=== PATIENT | female | born 1950 | race Caucasian/White ===

== ENCOUNTER 2020-01-23 06:57 | Observation (INO) ==
--- NOTE | 2020-01-18 13:30 | PAT Medication Instructions ---
Medication Instructions Date of Service January 18, 2020 Home Medications acetaminophen [Tylenol] 650 mg PO QID PRN albuterol sulfate [Ventolin HFA] 2 puff INHALATION Q4H PRN aspirin [Aspir-81] 81 mg PO DAILY atorvastatin [Lipitor] 20 mg PO HS azithromycin [Zithromax] 250 mg PO UD PRN bisacodyl [Dulcolax (bisacodyl)] 10 mg MA UD PRN calcium carbonate-vitamin D3 [Calcium 600 + D(3)] 1 cap PO QAM cholecalciferol (vitamin D3) [Vitamin D3] 25 mcg PO QAM ferrous sulfate 324 mg PO QAM fluticasone furoate-vilanterol [Breo Ellipta] 1 inh INHALATION QAM food supplemt, lactose-reduced [Ensure] 1 ea PO DAILY ipratropium-albuterol 3 ml INHALATION Q4H PRN levothyroxine [Synthroid] 50 mcg PO QAM magnesium hydroxide [Milk of Magnesia] 30 ml PO UD PRN melatonin 3 mg PO HS PRN multivitamin 1 tab PO QAM nystatin 5 ml PO QID omeprazole 20 mg PO QAM polyethylene glycol 3350 [Miralax] 17 g PO DAILY senna 8.6 mg PO QAM sodium phosphates [Enema] 118 ml MA UD PRN sotalol [Betapace] 160 mg PO DAILY umeclidinium [Incruse Ellipta] 1 inh INHALATION QAM venlafaxine [Effexor XR] 75 mg PO QAM Continue as directed azithromycin [Zithromax] 250 mg PO UD PRN ASK your surgeon for instructions aspirin [Aspir-81] 81 mg PO DAILY sotalol [Betapace] 160 mg PO DAILY DO NOT take the morning of surgery polyethylene glycol 3350 [Miralax] 17 g PO DAILY senna 8.6 mg PO QAM sodium phosphates [Enema] 118 ml MA UD PRN multivitamin 1 tab PO QAM magnesium hydroxide [Milk of Magnesia] 30 ml PO UD PRN food supplemt, lactose-reduced [Ensure] 1 ea PO DAILY bisacodyl [Dulcolax (bisacodyl)] 10 mg MA UD PRN calcium carbonate-vitamin D3 [Calcium 600 + D(3)] 1 cap PO QAM cholecalciferol (vitamin D3) [Vitamin D3] 25 mcg PO QAM ferrous sulfate 324 mg PO QAM Take morning of surgery With a small sip of water, OTHERWISE NOTHING TO EAT OR DRINK AFTER MIDNIGHT: umeclidinium [Incruse Ellipta] 1 inh INHALATION QAM venlafaxine [Effexor XR] 75 mg PO QAM omeprazole 20 mg PO QAM nystatin 5 ml PO QID (do not swallow- must spit out day of surgery) levothyroxine [Synthroid] 50 mcg PO QAM ipratropium-albuterol 3 ml INHALATION Q4H PRN (if needed) acetaminophen [Tylenol] 650 mg PO QID PRN (okay to take up to 4 hours prior to surgery if needed) albuterol sulfate [Ventolin HFA] 2 puff INHALATION Q4H PRN (use if needed; please bring with you to hospital day of surgery if possible) fluticasone furoate-vilanterol [Breo Ellipta] 1 inh INHALATION QAM Take evening before surgery ipratropium-albuterol 3 ml INHALATION Q4H PRN (if needed) magnesium hydroxide [Milk of Magnesia] 30 ml PO UD PRN (if needed) melatonin 3 mg PO HS PRN (if needed) nystatin 5 ml PO QID sodium phosphates [Enema] 118 ml MA UD PRN (if needed) acetaminophen [Tylenol] 650 mg PO QID PRN (if needed) albuterol sulfate [Ventolin HFA] 2 puff INHALATION Q4H PRN (if needed) atorvastatin [Lipitor] 20 mg PO HS bisacodyl [Dulcolax (bisacodyl)] 10 mg MA UD PRN (if needed) Other Notes If you have any questions please call us at [phone] or [phone] or [phone] or [phone]
--- NOTE | 2020-01-18 19:50 | Anesthesiology Consultation ---
Date of Service January 18, 2020 Assessment & Plan (1) Encounter for pre-operative examination: Per nursing phone assessment on 01/17: Travel screen- Lives in [facility]. Travel to [place] for doctor appt. No known COVID-19 positive contacts. Patient had chronic dyspnea. Patient resides in [facility] in [place] (per caregiver, they do not have any cases). Preop COVID testing done 01/17 is pending from [facility]. Will have PAT paralegal legal secretary inform anesthesiologist to review jail status to determine if rapid testing/anything further needed day of procedure. Chart Review Chart Review: Acceptable Risk for Surgery History Surgery Operation Date: 01/23/20 08:00 Proposed Procedures p SVT Ablation w/Mapping w/Betty Gaming DO Height/Weight Height: 5 ft Weight: 39.463 kg Allergies Allergy/AdvReac Type Severity Reaction Status Date / Time No Known Allergies Allergy Verified 01/18/20 10:48 Medications Home Medications Medication Instructions Recorded Confirmed Last Taken acetaminophen [Tylenol] 650 mg PO QID PRN 01/18/20 01/18/20 Unknown albuterol sulfate [Ventolin HFA] 2 puff INHALATION Q4H PRN 01/18/20 01/18/20 Unknown aspirin [Aspir-81] 81 mg PO DAILY 01/18/20 01/18/20 Unknown atorvastatin [Lipitor] 20 mg PO HS 01/18/20 01/18/20 Unknown azithromycin [Zithromax] 250 mg PO UD PRN 01/18/20 01/18/20 Unknown bisacodyl [Dulcolax (bisacodyl)] 10 mg ID UD PRN 01/18/20 01/18/20 Unknown calcium carbonate-vitamin D3 1 cap PO QAM 01/18/20 01/18/20 Unknown [Calcium 600 + D(3)] cholecalciferol (vitamin D3) 25 mcg PO QAM 01/18/20 01/18/20 Unknown [Vitamin D3] ferrous sulfate 324 mg PO QAM 01/18/20 01/18/20 Unknown fluticasone furoate-vilanterol 1 inh INHALATION QAM 01/18/20 01/18/20 Unknown [Breo Ellipta] food supplemt, lactose-reduced 1 ea PO DAILY 01/18/20 01/18/20 Unknown [Ensure] ipratropium-albuterol 3 ml INHALATION Q4H PRN 01/18/20 01/18/20 Unknown levothyroxine [Synthroid] 50 mcg PO QAM 01/18/20 01/18/20 Unknown magnesium hydroxide [Milk of 30 ml PO UD PRN 01/18/20 01/18/20 Unknown Magnesia] melatonin 3 mg PO HS PRN 01/18/20 01/18/20 Unknown multivitamin 1 tab PO QAM 01/18/20 01/18/20 Unknown nystatin 5 ml PO QID 01/18/20 01/18/20 Unknown omeprazole 20 mg PO QAM 01/18/20 01/18/20 Unknown polyethylene glycol 3350 [Miralax] 17 g PO DAILY 01/18/20 01/18/20 Unknown senna 8.6 mg PO QAM 01/18/20 01/18/20 Unknown sodium phosphates [Enema] 118 ml ID UD PRN 01/18/20 01/18/20 Unknown sotalol [Betapace] 160 mg PO DAILY 01/18/20 01/18/20 Unknown umeclidinium [Incruse Ellipta] 1 inh INHALATION QAM 01/18/20 01/18/20 Unknown venlafaxine [Effexor XR] 75 mg PO QAM 01/18/20 01/18/20 Unknown Past Medical History Medical History (Updated 01/18/20 @ 19:54 by Lupe Armstrong) Acid reflux Anemia Anxiety Candidosis no further details per RN interview Constipation COPD (chronic obstructive pulmonary disease) oxygen at home(no further details per RN interview) Depression History of GI bleed HTN (hypertension) Hx of compression fracture of spine Hyperlipidemia Iron deficiency anemia Osteoporosis SVT (supraventricular tachycardia) had 2 episodes - went to ER 10/2019 broke with Cardizem and adenosine Past Surgical History Surgical History History of bronchoscopy EBUS Hx of colonoscopy Social History Smoking Status: Former smoker Do You Dip or Chew Tobacco: No Hx Alcohol Use: No Hx Substance Use: No substance use type: does not use Testing Laboratory Results 12/17/19 WBC 7.30 H/H 12.6/40.9 PLATELETS 249 SODIUM 135 POTASSIUM 4.2 CHLORIDE 94 CO2 36 BUN 14 CREATININE 0.5 GLUCOSE 103 Electrocardiogram Date: 12/17/19 NSR at 97bpm. Biatrial enlargement. Septal infarct (cited on/before 07/23/19). ST/TWA consider inferolateral ischemia (similar changes dating back to 06/25/18 EKG, patient had subsequent stress test 06/27/18) Chest X-Ray Date: 11/22/19 Hyperaeration. No focal parenchymal consolidation. Nodular densities in lower lung [place] suspect for nipple shadows. Stress Test Date: 06/26/18 Type: nuclear Normal pharmacologic stress test without evidence of infarct or ischemia. Stress EKG with 1mm horizontal II, III, VF. EF 69%. 67% MPHR.
[~2020-01-23 06:57] MED LIST: LR 15ML/HR IV SCH
[2020-01-23] MEDS ORDERED: HEPARIN (PORCINE) 1000 UNIT/ML 10 ML (CATH LAB USE ONLY) ONE (07:22)
[2020-01-23] MEDS ORDERED: LIDOCAINE HCL 1% 20 ML VIAL ONE (07:26)
[2020-01-23] MEDS ORDERED: KETAMINE HCL INJ 50 MG/ML 10 ML VIAL ONE (07:27)
[2020-01-23] MEDS ORDERED: MIDAZOLAM HCL 1 MG/ML 2ML VIAL ONE ×2 (07:38→08:32)
--- NOTE | 2020-01-23 07:57 | History & Physical Bridge Note ---
Date of Service January 23, 2020 History & Physical Bridge Note I have examined the patient, reviewed the History & Physical and in the interval since the performance of the History & Physical I have noted the following changes of clinical significance: no changes noted
[2020-01-23] MEDS ORDERED: PROPOFOL IV EMULSION 10 MG/ML 20 ML VIAL IV ONE (08:34)
[2020-01-23] MEDS ORDERED: ISOPROTERENOL HCL 0.2 MG/ML 5 ML AMP IV ONE (09:39)
--- NOTE | 2020-01-23 11:26 | Post Anesthesia Assessment ---
Date of Service January 23, 2020 Post Sedation Assessment Vital Signs Pulse Resp BP Pulse Ox 01/23/20 07:24 101 H 22 163/92 H 100 Recovery Score Activity: Moves 4 extremities Respiration: Deep Breath/Cough Circulation: +/-20% PreAnes Value Consciousness: Fully Awake Oxygen Saturation: > 92% On Room Air Discharge Sedation Level of Care: Fast Track Phase II Post Sedation Plan On clinical assessment, the patient appears to have tolerated the sedation without complications. Patient is recovering as anticipated. Patient will continue to be monitored by nursing and may be discharged when sedation discharge criteria are met per below protocol. Upon Completions of procedure up to 15 minutes continue every 5 minute vital signs and the P.A.R. score; then discharge to a Phase I or Fast Track to Phase II per the following guidelines: * Discharge Patient to appropriate Phase II area if PAR is 8 or greater or return to pre- procedure baseline. The post - procedure orders will be as directed. * If PAR score is less than 8 or not return to pre-procedure baseline then patient will follow Phase I monitoring till PAR is reached for Phase II. The Phase I may be done in procedure room or may call to secure a Phase I area. * If naloxone or flumazenil are used for reversal, hold in Phase I for continued monitoring from when last reversal dose was given for a minimum of 60 minutes or longer pending the nurse and/or physician discretion of patient condition before discharge to Phase II. Please call the Sedation Physician to re-evaluate and complete post-note for discharge to Phase II area. Do NOT discharge from procedure sedation or Phase 1 until post- sedation evaluation note is complete by procedure /sedation MD Sedation Discharge Instructions to be given to the patient at discharge to home.
--- NOTE | 2020-01-23 11:27 | Operative Report ---
Post Operative Report Pre & Post Diagnosis Pre: SVT post: AVNRT Operation Date: 01/23/20 08:00 <No data on this case meets the specified criteria> I identified the patient and participated in the time-out.: Yes Procedure Operation Date: 01/23/20 08:00 Actual Procedures s Ultrasound Vascular Access - Carolee Gaming DO p EPS + Ablation for SVT Flutter - DO matthew Mancini 3D Mapping (Carto) - Carolee Gaming DO Surgeon Carolee Gaming, Waiter And Cashier none Estimated Blood Loss 5 Findings Consistent with Post-Op Diagnosis Specimens none Description of Procedure see official report I attest to the content of the Intraoperative Record and any orders documented therein. Any exceptions are noted below.
--- NOTE | 2020-01-23 11:34 | Discharge Summary ---
Date of Service January 24, 2020 Admission HPI Per Admitting Provider pt with recurrent SVT Admission Exam Per Admitting Provider aaox3, NAD NC/AT, EOMI Supple No JVD ST S1/S2, No murmur CTA b/l no w/r/r soft nt/nd no LE edema b/l skin intact no focal deficits Principal Diagnosis AVNRT s/p slow pathway modification Discharge Exam aaox3, NAD NC/AT, EOMI Supple No JVD ST S1/S2, No murmur CTA b/l no w/r/r soft nt/nd no LE edema b/l skin intact no focal deficits b/l groins soft no hematoma Discharge Data Allergies Allergy/AdvReac Type Severity Reaction Status Date / Time No Known Allergies Allergy Verified 01/18/20 10:48 Procedures Performed Operation Date: 01/23/20 08:00 Actual Procedures s Ultrasound Vascular Access - Carolee Gaming DO p EPS + Ablation for SVT Flutter - Carolee Gaming DO s 3D Mapping (Carto) - Carolee Gaming DO Ordered Studies 01/23/20 06:45 EP Lab Images for PACS ONCE Hospital Course (1) AVNRT (AV ismael re-entry tachycardia): (2) HTN (hypertension): Total Time Total Time Spent Total Time Spent (In Minutes): 40 Total Time Includes: Examination of the Patient, Discharge Planning, Medication Reconciliation and Other Discharge Plan Discharge Items Patient Disposition: Home - Self-Care Reason For Visit: Supraventricular Tachycardia Discharge Diagnosis: AVNRT s/p ablation Condition on Discharge: Good Activity: As commented below Lifting: No more than 10 pounds Lifting Comment: No heavy lifting or squatting for next week Bathing: No limitations Non-emergency contact: Oncology Consultant Call non-emergency contact if: you have any medication questions Follow-up/Referrals: PCP,NO [Primary Care Provider] - Diet: Regular Addtl Attending Provider Instructions: f/u with Dr. Gaming in 1 month Pending Studies at Discharge: No Stand-Alone Forms: My [employer] [facility] Medications and DC Order Prescriptions: New metoprolol tartrate 25 mg Tablet 25 mg PO BID 30 Days Qty: 60 RF: 0 Continued multivitamin Tablet 1 tab PO QAM RF: 0 nystatin 100,000 unit/mL Suspension 5 ml PO QID RF: 0 venlafaxine [Effexor XR] 75 mg Capsule,Extended Release 24hr 75 mg PO QAM RF: 0 atorvastatin [Lipitor] 20 mg Tablet 20 mg PO HS RF: 0 ipratropium-albuterol 0.5 mg-3 mg(2.5 mg base)/3 mL Solution For Nebulization 3 ml INHALATION Q4H PRN (Reason: SHORT OF BREATH) RF: 0 polyethylene glycol 3350 [Miralax] 17 gram Powder In Packet 17 g PO DAILY RF: 0 azithromycin [Zithromax] 250 mg Tablet 250 mg PO UD PRN (Reason: DENTAL PROCEDURE) RF: 0 melatonin 3 mg Tablet 3 mg PO HS PRN (Reason: Sleep) RF: 0 aspirin [Aspir-81] 81 mg Tablet,Delayed Release (Dr/Ec) 81 mg PO DAILY RF: 0 magnesium hydroxide [Milk of Magnesia] 400 mg/5 mL Suspension 30 ml PO UD PRN (Reason: Constipation) RF: 0 levothyroxine [Synthroid] 50 mcg Tablet 50 mcg PO QAM RF: 0 bisacodyl [Dulcolax (bisacodyl)] 10 mg Suppository 10 mg HI UD PRN (Reason: Constipation) RF: 0 Enema 19-7 gram/118 mL Enema 118 ml HI UD PRN (Reason: Constipation) RF: 0 omeprazole 20 mg Capsule,Delayed Release(Dr/Ec) 20 mg PO QAM RF: 0 albuterol sulfate [Ventolin HFA] 90 mcg/actuation Hfa Aerosol Inhaler 2 puff INHALATION Q4H PRN (Reason: SHORT OF BREATH) RF: 0 senna 8.6 mg Capsule 8.6 mg PO QAM RF: 0 Calcium 600 + D(3) 600 mg calcium- 200 unit Capsule 1 cap PO QAM RF: 0 acetaminophen [Tylenol] 325 mg Capsule 650 mg PO QID PRN (Reason: PAIN/FEVER) RF: 0 cholecalciferol (vitamin D3) [Vitamin D3] 25 mcg (1,000 unit) Tablet 25 mcg PO QAM RF: 0 ferrous sulfate 324 mg (65 mg iron) Tablet,Delayed Release (Dr/Ec) 324 mg PO QAM RF: 0 Breo Ellipta 100-25 mcg/dose Blister With Device 1 inh INHALATION QAM RF: 0 Incruse Ellipta 62.5 mcg/actuation Blister With Device 1 inh INHALATION QAM RF: 0 Discontinued sotalol [Betapace] 160 mg Tablet 160 mg PO DAILY RF: 0 No Action Ensure Liquid 1 ea PO DAILY RF: 0 Discharge Orders: Discharge Order (Routine); Ordered 01/24/20 Ordered By: Carolee Gaming Admission Data Admit Date/Time: 01/23/20 11:29 Attending Provider: Carolee Gaming Admit Provider: Carolee Gaming Primary Care Provider: PCP,NO
--- NOTE | 2020-01-23 12:41 | Anesthesiology Progress Note ---
Date of Service January 23, 2020 Anesthesia Post Procedure Vital Signs Vital Signs: Pulse Resp BP Pulse Ox 01/23/20 12:00 113 H 20 124/70 100 01/23/20 11:50 107 H 20 127/76 100 01/23/20 07:24 101 H 22 163/92 H 100 Transfer of Care Handoff Completed per policy Notes Mental Status: alert / awake / arousable Patient Amnestic to Procedure: Yes Nausea / Vomiting: adequately controlled Pain: adequately controlled Airway Patency, RR, SpO2: stable & adequate BP & HR: stable & adequate Hydration State: stable & adequate Anesthetic Complications: no major complications apparent
[2020-01-23] MEDS: METOPROLOL TARTRATE 25 MG TAB PO SCH ×2 (16:44→20:03)
[2020-01-23] MEDS: ACETAMINOPHEN 325 MG TAB PO PRN (20:03)
[2020-01-24] MEDS: ACETAMINOPHEN 325 MG TAB PO PRN (07:12)
--- NOTE | 2020-01-24 08:08 | Electrocardiogram Report ---
Test Reason : Blood Pressure : / mmHG Vent. Rate : 119 BPM Atrial Rate : 119 BPM P-R Int : 118 ms QRS Dur : 072 ms QT Int : 310 ms P-R-T Axes : 082 -26 264 degrees QTc Int : 436 ms Sinus tachycardia with Premature atrial complexes Right atrial enlargement Abnormal ECG No previous ECGs available Confirmed by Goran Xiong ([id number]) on 01/24/2020 8:08:07 AM Referred By: Carolee Gaming Confirmed By:Goran Xiong
[2020-01-24] MEDS: METOPROLOL TARTRATE 25 MG TAB PO SCH (08:41)
--- NOTE | 2020-02-04 07:33 | Operative Report (OR) ---
DATE OF OPERATION: 01/23/2020 PREOPERATIVE DIAGNOSIS: Supraventricular tachycardia. POSTOPERATIVE DIAGNOSIS: Atrioventricular ismael reentrant tachycardia. SURGEON: Carolee Gaming DO. PRIVATE SECURITY GUARD: None. PROCEDURE: Electrophysiology study, ultrasound guidance venous access, 3D mapping of the His bundle region, AVNRT/slow pathway modification via radiofrequency ablation. ANESTHESIA: Monitored anesthetic care was given via Anesthesiology. Please defer to their notes for complete details, I gave a total of 90 mg of ketamine, 180 mg of propofol, 4 mg of Versed, start time for the case was 08:11:23. BLOOD LOSS: 5 mL URINE OUTPUT: Not applicable. SPECIMENS: None. FINDINGS: See below. DRAINS: None. INDICATIONS: This is a 69-year-old female with past medical history for recurrent SVT who has been seen for the last 6 months. She continues to have recurrent Emergency Room visits despite being on sotalol requiring adenosine. 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 Due to the recurrent SVT requiring multiple ER admissions for the ultimately recommended an electrophysiology study with possible ablation. CONSENT: Consent was obtained prior to the patient going to electrophysiology lab. The patient was informed of risks, benefits and alternative procedure. Risks include but not limited to sudden cardiac , cardiac arrhythmias, cerebrovascular accident, myocardial infarction, injury to the blood vessels, chamber of the heart or the [place] electrical system where she would need a permanent pacemaker, bleeding and infection. The patient understood these risks and agreed to the do the procedure as planned. Informed consent was obtained. DESCRIPTION OF THE PROCEDURE: The patient was brought into the electrophysiology lab in a fasting state. She was connected to continuous cardiac monitoring. A timeout was performed to ensure patient identity and procedure correctly. She received monitored anesthetic care throughout the procedure via anesthesiology for comfort level. [place] precautions were maintained throughout the procedure. A 10 mL of 1% lidocaine bupivacaine mixture were given over the bilateral groins. We also gave her a bolus of fluid due to being low. The low volume pelvic ultrasound hemostasis was obtained in the following manner. The left femoral vein 7-Trinidadian sheath followed by a Decapolar coronary sinus catheter positioned at the coronary sinus DF curved. A 7-Trinidadian sheath followed by a Hisser catheter positioned over the His bundle region. A 6-Trinidadian sheath followed by a Brigido quadripolar catheter positioned in the right ventricular apex. The right femoral vein had a 6-Trinidadian sheath followed by a Brigido quadripolar catheter positioned in the high right atrium and a 6-Trinidadian sheath that was ultimately swapped out for an SRO and ablation 4 mm DF curved non-irrigated catheter. With all the catheters in position, electrophysiology study was performed with the following findings: Sinus cycle length 581 milliseconds, NJ interval 100 milliseconds, QRS 55 milliseconds and QT 290 milliseconds. The AH was 54 milliseconds, HV was 39 milliseconds, AV Wenckebach was 250 milliseconds, the AV node ERP was less than or equal to the atrial ERP. The atrial ERP was 500/260 and 400/230. Right ventricular ERP was 500/200 and 400/200. SVT was induced with doubles from the high right atrium at 400/240/240. The tachycardia cycle length was 346. The VA time was 24. There was a VAV response when I entrained into the right ventricular and ultimately was able to eventually break the tachycardia with the diagnosis of AVNRT, we set up to do slow pathway modification. That is when the 6-Trinidadian sheath on the right femoral vein was swapped out for an SRO and then the ablation catheter was placed up into the heart and 3D mapping of the His bundle region followed then by placing the ablation catheter on the low right atrial septum, where it she was initially, I think I was at near the false pathway because they have some faster junctional, so I was able to go further down on the right atrial septum and had some nice junctional rhythms and gave a series of radiofrequency taylor at 25/30 fernandez and then during the post-ablation waiting period, an electrophysiology study was performed with ablation with the following findings: The NJ interval 105 milliseconds, QRS 80 milliseconds, QT 262 milliseconds, sinus cycle length was 526 milliseconds, AH 63 milliseconds, HV 43 milliseconds, AV Wenckebach was 250 milliseconds, the AV node ERP was less than or equal to the atrial ERP, the AV atrial ERP was 500/230 and 400/220. There was a fast pathway ERP, possibly at 400/230. The right ventricular ERP was 400/210. There was no inducible SVT with giving up the triples from the high right atrium, and I did not have any echoes, so after adequate waiting period all the catheters were removed from the heart and then the sheaths were pulled and manual compression was used to establish hemostasis. IMPRESSION: 1. 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 2. Dual atrioventricular ismael pathology. PLAN: Monitor patient overnight, 12-lead ECG. She is not to do any heavy lifting or squatting for 1 week. We can stop her sotalol, but I will continue some metoprolol 25 mg twice a day and I will see her back in the office in 1 month. I attest to the content of the Intraoperative Record and any orders documented therein. Any exception s are noted below.
== END 2020-01-24 14:36 | disposition home or self-care (01) ==
LOC: 2S 06:57 → EP 06:57